=== PATIENT | male | born 1975 | race Two or more races ===

== ENCOUNTER 2017-08-21 08:39 | Inpatient (IN) | payer SELFPAY ==
[~2017-08-21] VITALS: Ht 180.3 cm; Wt 105.4 kg
[2017-08-21] MEDS ORDERED: SODIUM CHLORIDE 0.9% 1,000 ML IV ONE (09:19)
[2017-08-21] MEDS ORDERED: PROMETHAZINE HCL 25 MG/ML 1ML IV PRN (09:30)
[2017-08-21] MEDS ORDERED: NALBUPHINE HCL 10 MG/1ml INJECTION IV ONE (09:30)
[2017-08-21 09:38] LABS: Basophils # (auto) 0.1 uL; Basophils % (auto) 0.4 % (0.0-2.0); Eosinophils # (auto) 0 uL; Hemoglobin 15.7 g/dL (13.5-17.5); Lymphocytes # (auto) 1.7 uL; Lymphocytes % (auto) 8.3 % (10.0-50.0); Mean Corpuscular Hemoglobin 30.2 pg (28.0-32.0); Mean Corpuscular Hgb Conc. 34.1 g/dL (32.0-36.0); Mean Corpuscular Volume 88.6 fL (80.0-100.0); Mean Platelet Volume 10.8 fL (6.9-10.8); Monocytes # (auto) 1.5 uL; Monocytes % (auto) 7.2 % (0.0-12.0); Neutrophils # (auto) 17.2 uL; Neutrophils % (auto) 84.1 % (37.0-80.0); Nucleated Red Blood Cells % 0.1 %; Platelet Count (auto) 222 10^3/uL (140-450); Red Cell Distribution Width 13.1 % (11.8-14.3); White Blood Cell 20.4 10^3/uL (4.4-10.8)
[2017-08-21 09:41] LABS: Urine Bilirubin Negative (Negative); Urine Blood Negative /uL (Negative); Urine Color Yellow (Yellow); Urine Glucose Normal (Normal); Urine Ketone Negative (Negative); Urine Nitrite Negative (Negative); Urine RBC <1 /hpf (0 - 3); Urine Squamous Epithelial Cell FEW /hpf (<5); Urine Urobilinogen Normal (Negative); Urine pH 8.5 (5.0-8.0)
[2017-08-21 09:50] LABS: Partial Thromboplastin Time 21.9 sec (22.64-33.71); Prothrombin Time 10.9 sec (9.37-12.3)
[2017-08-21 09:54] LABS: BUN/Creatinine Ratio 9.8; Calcium 9.1 mg/dL (8.5-10.1); Magnesium 2.1 mg/dL (1.6-2.6); Potassium 3.8 mmol/L (3.5-5.1)
[2017-08-21 09:55] LABS: Bilirubin, Total 1.1 mg/dL (0.2-1.0); Total Protein 7.8 g/dL (6.4-8.2)
[2017-08-21] MEDS ORDERED: cefTRIAXone 1GM/50ML D5W 50 ML IV ONE (10:00)
[2017-08-21 10:26] LABS: Platelet Estimate Adequate; RBC Morphology Normal
[2017-08-21] MEDS ORDERED: MEPERIDINE HCL (50 MG/ML) 1 ML VIAL ONE (18:54)
[2017-08-21] MEDS ORDERED: fentaNYL CITRATE 100 MCG/2 ML VL ONE (18:54)
[2017-08-21] MEDS ORDERED: MIDAZOLAM HCL 1MG/1ML-2 ML VIAL ONE (18:54)
[2017-08-21] MEDS ORDERED: SUCCINYLCHOLINE CHLORIDE 20 MG/ML 10ML VIAL IV ONE (18:55)
[2017-08-21] MEDS ORDERED: PROPOFOL 10 MG/ML 20 ML IV ONE (19:26)
[2017-08-21] MEDS ORDERED: DEXAMETHASONE SOD PHOS 10MG/1ML VIAL INJ ONE (19:26)
[2017-08-21] MEDS ORDERED: KETOROLAC TROMETH 30 MG/ML 1ML VIAL ONE (19:30)
[2017-08-21] MEDS ORDERED: NEOSTIGMINE 1 MG/ML INJ (10mg/10ML VIAL) ONE (19:30)
[2017-08-21] MEDS ORDERED: GLYCOPYRROLATE 0.2 MG/ML 1ML VIAL ONE (19:30)
[2017-08-21] MEDS ORDERED: LIDOCAINE W/ EPINEPHRINE 1% 20ML VIAL ONE (19:38)
[2017-08-21] MEDS ORDERED: HYDROmorphone HCL 2 MG/ML VL IV PRN (20:30)
[2017-08-21] MEDS ORDERED: KETOROLAC TROMETH 30 MG/ML 1ML VIAL IV ONE (20:30)
[2017-08-21] MEDS ORDERED: LABETALOL HCL 5 MG/ML 4ML SYRINGE IV PRN (20:30)
[2017-08-21] MEDS ORDERED: ONDANSETRON HCL 4 MG/2 ML VIAL IV ONE (20:30)
[2017-08-21] MEDS ORDERED: ePHEDrine SULFATE 50 MG/ML AMP IV PRN (20:30)
[2017-08-21] MEDS ORDERED: MIDAZOLAM HCL 1MG/1ML-2 ML VIAL IV PRN (20:30)
[2017-08-21 21:45] VITALS: BP 121/73
[2017-08-21 22:00] VITALS: BP 122/73
[2017-08-21] MEDS ORDERED: MORPHINE SULF INJ 2 MG/ML SYRINGE 1ML IV ONE (22:00)
[2017-08-21 22:15] VITALS: BP 110/68
[2017-08-21 22:45] VITALS: BP 106/61
[2017-08-21 23:15] VITALS: BP 113/68
[2017-08-22] VITALS (9 sets, daily range): BP systolic 100–154; BP diastolic 57–91
[2017-08-22] MEDS: SODIUM CHLORIDE 0.9% 1,000 ML IV SCH ×2 (00:44→17:17)
[2017-08-22] MEDS ORDERED: ACETAMINOPHEN 325 MG TAB PO PRN (00:45)
[2017-08-22] MEDS ORDERED: TEMAZEPAM 15 MG CAP PO PRN (00:45)
[2017-08-22] MEDS ORDERED: ONDANSETRON HCL 4 MG/2 ML VIAL IV PRN (00:45)
[2017-08-22] MEDS ORDERED: MORPHINE SULF INJ 2 MG/ML SYRINGE 1ML IV PRN (00:45)
[2017-08-22] MEDS ORDERED: PANTOPRAZOLE 40 MG/10 ML VIAL IV ONE (00:45)
[2017-08-22 01:22] LABS: Basophils # (auto) 0 uL; Basophils % (auto) 0.2 % (0.0-2.0); Eosinophils # (auto) 0 uL; Hematocrit 42.6 % (41.0-53.0); Hemoglobin 14.1 g/dL (13.5-17.5); Lymphocytes % (auto) 7.7 % (10.0-50.0); Mean Corpuscular Hemoglobin 29.7 pg (28.0-32.0); Mean Corpuscular Hgb Conc. 33.2 g/dL (32.0-36.0); Mean Corpuscular Volume 89.3 fL (80.0-100.0); Mean Platelet Volume 10.1 fL (6.9-10.8); Monocytes # (auto) 0.2 uL; Monocytes % (auto) 1.8 % (0.0-12.0); Neutrophils # (auto) 11.9 uL; Neutrophils % (auto) 90.3 % (37.0-80.0); Platelet Count (auto) 218 10^3/uL (140-450); Red Cell Distribution Width 13.6 % (11.8-14.3); White Blood Cell 13.2 10^3/uL (4.4-10.8)
[2017-08-22 01:41] LABS: Albumin 3.1 g/dL (3.4-5.0); BUN/Creatinine Ratio 6.2; Calcium 8.2 mg/dL (8.5-10.1); Potassium 4.6 mmol/L (3.5-5.1)
[2017-08-22 01:45] LABS: Bilirubin, Total 0.8 mg/dL (0.2-1.0); Total Protein 6.9 g/dL (6.4-8.2)
[2017-08-22] MEDS ORDERED: cefTRIAXone 1GM/50ML D5W 50 ML IV SCH (09:00)
[2017-08-22] MEDS: HYDROcodone-ACET 5/325MG TAB PO PRN ×2 (09:13→14:49)
[2017-08-22] MEDS ORDERED: PANTOPRAZOLE 40 MG/10 ML VIAL IV SCH (10:00)
== END 2017-08-22 21:23 | disposition left against medical advice (07) | DRG 337 ==
LOC: ER 08:39 → OR 1 16:17 → EAST 16:18
PROVIDERS: ADMIT Surgery; ATTEND Surgery
PROC: 0DNW4ZZ Release Peritoneum, Percutaneous Endoscopic Approach (ICD-10-PCS; 2017-08-21)
PROC: 0DTJ4ZZ Resection of Appendix, Percutaneous Endoscopic Approach (ICD-10-PCS; principal; 2017-08-21 19:11)
DX: K35.3 Acute appendicitis with localized peritonitis (principal); I70.0 Atherosclerosis of aorta
CPT/HCPCS: 36415; 71020; 74176; 80053; 81001; 83690; 83735; 85025; 85610; 85730; 93005; 96361; 96365; 96375; C9113; J0330; J0696; J1100; J1885; J2250; J2704

== ENCOUNTER → 2020-05-27 | Emergency (ER) | payer SELFPAY | END | disposition left against medical advice (07) | LOC: ER 22:03 | DX: R50.9 Fever, unspecified (principal); Z53.21 Procedure and treatment not carried out due to patient leaving prior to being seen by health care provider ==